=== PATIENT | female | born 1990 | race Caucasian/White ===

== ENCOUNTER 2020-11-07 18:16 | Emergency (ER) | payer MEDICAID, OTHER ==
[~2020-11-07] VITALS: Ht 167.6 cm; Wt 95.3 kg
[~2020-11-07 18:16] MED LIST: IBUP-1131 PO
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
[2020-11-07 18:49] VITALS: BP 110/68
[2020-11-07 19:05] VITALS: BP 110/68
[2020-11-07] MEDS ORDERED: TYLENOL #3 PO STA (19:28)
[2020-11-07] MEDS ORDERED: TYLENOL #3 PO ONE (19:34)
[2020-11-07 20:00] VITALS: BP 100/61
--- NOTE | 2020-11-07 20:02 | DIREP ---
PROCEDURE:XRAY KNEE 2 VWS-RT COMPARISON:None. INDICATIONS:r knee pain FINDINGS: BONES:No fractures demonstrated. Bone mineralization appears normal. JOINTS:No significant joint space narrowing, joint effusion, or hemarthrosis is seen. SOFT TISSUES:Normal. OTHER:No additional findings. CONCLUSION: 1. Normal radiographs of the right knee. Dictated by: Simba Berrios M.D. on 11/07/2020 at 07:57 PM
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
== END 2020-11-07 20:53 | disposition home or self-care (01) ==
LOC: ER 18:16
DX: M25.561 Pain in right knee (principal); Z79.1 Long term (current) use of non-steroidal anti-inflammatories (NSAID)
CPT/HCPCS: 73560; 99283; J3490